=== PATIENT | female | born 1995 | race African-American/Black ===

== ENCOUNTER 2017-08-21 01:05 | Emergency (ER) | payer SELFPAY ==
[2017-08-21 01:43] LABS: Pregnancy Test - Urine (BHCG) Negative (Negative); Pregu Control Background? CLEAR/WHITE (CLR/WHITE); Pregu Control Bar Appear? YES (CONTROL BAR)
[2017-08-21 01:44] LABS: #Basophils 0.1 thou/uL (0.0-0.2); #Eosinphils 0.2 thou/uL (0.0-0.7); #Lymphocytes 2.7 thou/uL (1.20-3.40); #Monocytes 0.8 thou/uL (0.11-0.59); #Neutrophils 4.1 thou/uL (1.40-6.50); %Basophils 1.1 % (0.0-1.0); %Eosinophils 2.1 % (0.0-10.0); %Lymphocytes 34.3 % (21.0-51.0); %Monocytes 10.2 % (0.0-10.0); %Neutrophils 52.2 % (42.0-75.0); Mean Corpuscular HGB CONC 32.4 g/dL (32.0-36.0); Mean Corpuscular Hemoglobin 25.5 pg (27.0-31.0); Mean Corpuscular Volume 78.6 fl (81.0-99.0); Mean Platelet Volume 8.1 fL (7.4-10.4); Platelet Count 290 thou/uL (130-400); White Blood Cell (WBC) Count 7.8 thou/uL (4.8-10.8)
[2017-08-21 01:44] LABS: Bilirubin Negative (Negative); Blood, Urine Negative (Negative); Clarity CLEAR (Clear); Glucose, Urine (Dipstick) Negative (Negative); Leukocyte Negative (Negative); Nitrite Negative (Negative); Protein, Urine (Dipstick) Negative (Neg-Trace)
[2017-08-21] MEDS ORDERED: Ketorolac Tromethamine 30 MG/ML VIAL ONE (02:10)
[2017-08-21] MEDS ORDERED: Ondansetron HCl/PF 4 MG/2 ML Vial ONE (02:10)
[2017-08-21 02:28] LABS: ALT (SGPT) 7 U/L (8-55); AST (SGOT) 10 U/L (5-34); Albumin 4.2 g/dL (3.5-5.0); Alkaline Phosphatase 43 U/L (40-150); Anion Gap 11 mmol/L (10-20); BUN (Urea Nitrogen) 17 mg/dL (7.0-18.7); Bilirubin, Total 0.2 mg/dL (0.2-1.2); Calc. Creatinine Clearance 0 mL/min (70-130); Calcium 10.5 mg/dL (7.8-10.44); Carbon Dioxide 27 mmol/L (22-29); Chloride 102 mmol/L (98-107); Estimated GFR-MDRD Greater than 90; Globulin 3.6 g/dL (2.4-3.5); Glucose 92 mg/dL (70-105); Lipase 15 U/L (8-78); Potassium 4.1 mmol/L (3.5-5.1); Protein, Total 7.8 g/dL (6.0-8.3); Sodium 136 mmol/L (136-145)
--- NOTE | 2017-08-21 08:14 | CT ---
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 Pt states that pain starts in epigastric region and moves down abd omen to bilateral lower abdomen. Pain worse with twisting movement. Reports decreased appetite. Denie s n/v/d. Denies urinary symptoms, denies dysuria. TECHNIQUE: Axial computed tomography images of the abdomen and pelvis with intravenous contrast. Coronal reformatted images were created and reviewed. COMPARISON: No relevant prior studies available. FINDINGS: Lower thorax: No acute findings. ABDOMEN: Liver: Hepatic steatosis. Gallbladder and bile ducts: Unremarkable. No calcified stones. No ductal dilation. Pancreas: Unremarkable. No mass. No ductal dilation. Spleen: Unremarkable. No splenomegaly. Adrenals: Unremarkable. No mass. Kidneys and ureters: Unremarkable. No solid mass. No hydronephrosis. Stomach and bowel: No bowel wall thickening or intestinal obstruction. Mild gaseous distention of the nondependent portions of the bowel may contribute to patient discomfort but is not pathologic. Appendix: Normal appendix. PELVIS: Bladder: Unremarkable. No mass. Reproductive: 2 cm or so collapsed/ruptured corpus luteum cyst remnant of the left ovary. ABDOMEN and PELVIS: Intraperitoneal space: Unremarkable. No free air. No significant fluid collection. Bones/joints: No acute fracture. No dislocation. Soft tissues: Unremarkable. Vasculature: Unremarkable. No abdominal aortic aneurysm. Lymph nodes: Unremarkable. No enlarged lymph nodes. IMPRESSION: 2 cm or so collapsed/ruptured corpus luteum cyst remnant of the left ovary. Thank you for allowing us to participate in the care of your patient. Dictated and Authenticated by: Brenden Eckert MD 08/21/2017 2:56 AM Central Time ([place] & [place]) FINAL REPORT CT AD AND PELVIS WITH IV CONTRAST: DATE: 08/21/17. TIME: Performed on emergency basis 0237 hours. HISTORY: Abdominal pain. FINDINGS: Findings agree with the preliminary report from [facility]. Collapsing follicle of the left a dnexa is suspected. Minimal free fluid. No aggressive inflammation. Lack of oral contrast limits evaluation of the bowel. No evidence of obstruction. POS: [facility]
[2017-08-21] MEDS ORDERED: ISOVUE-370 76%-LOCM 1 ML ONE (15:38)
== END 2017-08-21 03:34 | disposition home or self-care (01) ==
LOC: ERS 01:05
DX: R10.13 Epigastric pain (principal); R10.31 Right lower quadrant pain; R10.32 Left lower quadrant pain
CPT/HCPCS: 36415; 74177; 80053; 81003; 81025; 83690; 85025; 96374; 96375; J1885; J2405